=== PATIENT | female | born 1990 | race Caucasian/White ===

== ENCOUNTER 2023-03-10 13:46 | Emergency (ER) | payer OTHER ==
[~2023-03-10] VITALS: Ht 157.5 cm; Wt 77.3 kg
[2023-03-10 13:51] VITALS: TEMP 98.2
[2023-03-10 13:54] LABS: COVID AG,FIA SOURCE NASAL SWAB
[2023-03-10 14:13] LABS: RAPID GROUP A STREP NEGATIVE (NEGATIVE)
[2023-03-10 14:18] LABS: SARS-COV2 (COVID) ANTIGEN,FIA Negative (Negative)
[2023-03-10 14:19] LABS: INFLUENZA TYPE A NEGATIVE FOR TYPE A (NEGATIVE); INFLUENZA TYPE B NEGATIVE FOR TYPE B (NEGATIVE)
[2023-03-10 14:44] VITALS: BP 145/83; PULSE 100; RESP 16
[2023-03-10] MEDS ORDERED: BENZ-227 PO (14:49)
[2023-03-10] MEDS ORDERED: IPRA30SP2 NASAL (14:50)
== END 2023-03-10 14:55 | disposition home or self-care (01) ==
LOC: EMS 13:56
DX: J06.9 Acute upper respiratory infection, unspecified (principal); R05.9 Cough, unspecified; Z20.822 Contact with and (suspected) exposure to COVID-19
CPT/HCPCS: 99283; 87426; 87430; 87804; C9803